=== PATIENT | male | born 1970 | race Caucasian/White ===

== ENCOUNTER → 2023-04-17 | Outpatient (CLI) | payer OTHER | END | disposition home or self-care (01) | LOC: LABWHC1 11:59 | PROVIDERS: ATTEND Urology | DX: R97.20 Elevated prostate specific antigen [PSA] (principal) | CPT/HCPCS: 36415; 84153 ==

== ENCOUNTER 2024-04-20 15:20 | Emergency (ER) | payer OTHER ==
[2024-04-20 15:28] VITALS: RESP 18; TEMP 97.5
[2024-04-20 16:40] LABS: Basophils % (A) 0 %; Eosinophils # (A) 0.1 k/uL (0-0.7); Eosinophils % (A) 1 %; HCT 43.9 % (39.0-53.0); HGB 14.7 gm/dL (13.0-17.5); Lymphocytes # (A) 1.4 k/uL (1.0-4.8); Lymphocytes % (A) 10 %; MCH 30.4 pg (25.0-35.0); MCHC 33.4 g/dL (31.0-37.0); MCV 91.1 fL (80.0-100.0); Mean Platelet Volume 6.6; Monocytes # (A) 0.7 k/uL (0-1.0); Monocytes % (A) 5 %; Neutrophils # (A) 12.4 k/uL (1.3-7.7); Neutrophils % (A) 84 %; Platelet Count 270 k/uL (150-450); RBC 4.82 m/uL (4.30-5.90); RDW 12.1 % (11.5-15.5); WBC 14.7 k/uL (3.8-10.6)
--- NOTE | 2024-04-20 16:40 | ED ---
General Adult HPI - General Chief complaint: Urogenital Stated complaint: Lower abd pain Time Seen by Provider: 04/20/24 16:13 Source: patient Mode of arrival: ambulatory Limitations: no limitations - History of Present Illness Initial comments: 54-year-old male with chief complaint of abdominal pain. Patient states that earlier today he started experiencing some pain to his right sided back. Since then the pain has traveled around from his side and is now in his pelvis. It is a sharp pain with colicky quality. He has also had some difficulty urinating today. He admits to nausea and vomiting. No dysuria or hematuria. No history of kidney stones. No fevers or chills. No diarrhea or hematochezia. - Related Data Previous Rx's Medication Instructions Recorded Ketorolac [Toradol] 10 mg PO Q6HR PRN #12 tab 04/20/24 Ondansetron Odt [Zofran Odt] 4 mg PO Q8HR PRN #20 tab 04/20/24 Allergies Allergy/AdvReac Type Severity Reaction Status Date / Time No Known Allergies Allergy Verified 04/20/24 16:04 Review of Systems ROS Statement: Those systems with pertinent positive or pertinent negative responses have been documented in the HPI. ROS Other: All systems not noted in ROS Statement are negative. Past Medical History Past Medical History: No Reported History Past Surgical History: Appendectomy, Orthopedic Surgery Smoking Status: Never smoker Past Alcohol Use History: Occasional Past Drug Use History: Marijuana General Exam Limitations: no limitations General appearance: alert, in no apparent distress Head exam: Present: atraumatic, normocephalic Eye exam: Present: normal appearance, EOMI Neck exam: Present: normal inspection. Absent: meningismus Respiratory exam: Absent: respiratory distress Cardiovascular Exam: Present: regular rate GI/Abdominal exam: Present: soft. Absent: distended, tenderness, guarding, rebound, rigid Neurological exam: Present: alert, oriented X3 Psychiatric exam: Present: normal affect, normal mood Skin exam: Present: warm, dry Course Vital Signs 04/20/24 04/20/24 15:25 18:09 Temperature 97.5 F L Pulse Rate 68 70 Respiratory 18 18 Rate Blood Pressure 148/89 134/88 O2 Sat by Pulse 99 97 Oximetry Medical Decision Making - Medical Decision Making Was pt. sent in by a medical professional or institution (, PA, ORTHODONTIST VICE PRESIDENT, urgent care, hospital, or retirement...) When possible be specific @ -No Did you speak to anyone other than the patient for history (EMS, parent, family, police, friend...)? What history was obtained from this source @ -No Did you review nursing and triage notes (agree or disagree)? Why? @ -I reviewed and agree with nursing and triage notes Were old charts reviewed (outside hosp., previous admission, EMS record, old EKG, old radiological studies, urgent care reports/EKG's, retirement records)? Report findings @ -No old charts were reviewed Differential Diagnosis (chest pain, altered mental status, abdominal pain women, abdominal pain men, vaginal bleeding, weakness, fever, dyspnea, syncope, headache, dizziness, GI bleed, back pain, seizure, CVA, palpatations, mental health, musculoskeletal)? @ -MDM Differential Abdominal Pain Men: Appendicitis, cholecystitis, diverticulosis, ischemic bowel, pancreatitis, hepatitis, UTI, gastroenteritis, AAA, incarcerated hernia, bowel obstruction, constipation, inflammatory bowel, hepatitis, peptic ulcer disease, splenic infarction, perforated viscus, testicular torsion... This is not meant to be an all-inclusive list EKG interpreted by me (3pts min.). @ -As above X-rays interpreted by me (1pt min.). @ -None done CT interpreted by me (1pt min.). @ -CT shows punctate calcification within the dependent midline the urinary bladder. This may be recent passage of a right ureteral stone. Minimal right hydroureter would correlate with recent passage of a calcification U/S interpreted by me (1pt. min.). @ -None done What testing was considered but not performed or refused? (CT, X-rays, U/S, labs)? Why? @ -None What meds were considered but not given or refused? Why? @ -None Did you discuss the management of the patient with other professionals (professionals i.e. , PA, ORTHODONTIST VICE PRESIDENT, lab, RT, psych nurse, executive secretary social welfare, hospitality job titles, teacher, immigration officer, home health care case manager)? Give summary @ -No Was smoking cessation discussed for >3mins.? @ -No Was critical care preformed (if so, how long)? @ -No Were there social determinants of health that impacted care today? How? (Homelessness, low income, unemployed, alcoholism, drug addiction, transportation, low edu. Level, literacy, decrease access to med. care, penitentiary, rehab)? @ -No Was there de-escalation of care discussed even if they declined (Discuss DNR or withdrawal of care, Hospice)? DNR status @ -No What co-morbidities impacted this encounter? (DM, HTN, Smoking, COPD, CAD, Cancer, CVA, ARF, Chemo, Hep., AIDS, mental health diagnosis, sleep apnea, morbid obesity)? @ -None Was patient admitted / discharged? Hospital course, mention meds given and route, prescriptions, significant lab abnormalities, going to OR and other pertinent info. @ -54-year-old male patient with chief complaint of right-sided abdominal pain. Initially started as flank pain. History and physical exam are conducted. WBC 14.7, patient was vomiting today. Urine shows large blood with [address] is positive for recently diagnosed calcification and right hydroureter. On reassessment patient is resting comfortably, no more pain. Educated on today's findings discharged home. Follow-up with PCP. Report back to ER with any new or worsening symptoms. Discussed return parameters and answered all questions. Patient conveyed verbal understanding and agreed to the plan. I discussed this case in detail with my attending Dr. Morris Undiagnosed new problem with uncertain prognosis? @ -No Drug Therapy requiring intensive monitoring for toxicity (Heparin, Nitro, Insulin, Cardizem)? @ -No Were any procedures done? @ -No Diagnosis/symptom? @ -Kidney stone Acute, or Chronic, or Acute on Chronic? @ -Acute Uncomplicated (without systemic symptoms) or Complicated (systemic symptoms)? @ -Uncomplicated Side effects of treatment? @ -No Exacerbation, Progression, or Severe Exacerbation? @ -No Poses a threat to life or bodily function? How? (Chest pain, [place], OR, pneumonia, PE, COPD, DKA, ARF, appy, cholecystitis, CVA, Diverticulitis, Homicidal, Suicidal, threat to staff... and all critical care pts) @ -No - Lab Data Result diagrams: 04/20/24 16:31 04/20/24 16:31 Lab Results 04/20/24 04/20/24 04/20/24 Range/Units 16:31 16:31 17:03 WBC 14.7 H (3.8-10.6) k/uL RBC 4.82 (4.30-5.90) m/uL Hgb 14.7 (13.0-17.5) gm/dL Hct 43.9 (39.0-53.0) % MCV 91.1 (80.0-100.0) fL MCH 30.4 (25.0-35.0) pg MCHC 33.4 (31.0-37.0) g/dL RDW 12.1 (11.5-15.5) % Plt Count 270 (150-450) k/uL MPV 6.6 Neutrophils % 84 % Lymphocytes % 10 % Monocytes % 5 % Eosinophils % 1 % Basophils % 0 % Neutrophils # 12.4 H (1.3-7.7) k/uL Lymphocytes # 1.4 (1.0-4.8) k/uL Monocytes # 0.7 (0-1.0) k/uL Eosinophils # 0.1 (0-0.7) k/uL Basophils # 0.0 (0-0.2) k/uL Sodium 136 L (137-145) mmol/L Potassium 4.3 (3.5-5.1) mmol/L Chloride 104 (98-107) mmol/L Carbon Dioxide 25 (22-30) mmol/L Anion Gap 7 mmol/L BUN 21 H (9-20) mg/dL Creatinine 0.85 (0.66-1.25) mg/dL Est GFR (CKD-EPI)AfAm >90 (>60 ml/min/1.73 sqM) Est GFR (CKD-EPI)NonAf >90 (>60 ml/min/1.73 sqM) Glucose 137 H (74-99) mg/dL Calcium 9.4 (8.4-10.2) mg/dL Total Bilirubin 0.7 (0.2-1.3) mg/dL AST 28 (17-59) U/L ALT 22 (4-49) U/L Alkaline Phosphatase 49 (38-126) U/L Total Protein 7.4 (6.3-8.2) g/dL Albumin 4.5 (3.5-5.0) g/dL Urine Color Yellow Urine Appearance Clear (Clear) Urine pH 5.0 (5.0-8.0) Ur Specific [place] 1.026 (1.001-1.035) Urine Protein Trace H (Negative) Urine Glucose (UA) Negative (Negative) Urine Ketones Negative (Negative) Urine Blood Large H (Negative) Urine Nitrite Negative (Negative) Urine Bilirubin Negative (Negative) Urine Urobilinogen <2.0 (<2.0) mg/dL Ur Leukocyte Esterase Negative (Negative) Urine RBC 83 H (0-5) /hpf Urine WBC 1 (0-5) /hpf Urine Mucus Moderate H (None) /hpf Disposition Clinical Impression: Kidney stone Disposition: HOME SELF-CARE Condition: Good Instructions (If sedation given, give patient instructions): Kidney Stones (ED) Additional Instructions: Follow-up with PCP. Report back to the ER with any new or worsening symptoms. Prescriptions: Ketorolac [Toradol] 10 mg PO Q6HR PRN #12 tab PRN Reason: Pain Ondansetron Odt [Zofran Odt] 4 mg PO Q8HR PRN #20 tab PRN Reason: Nausea Is patient prescribed a controlled substance at d/c from ED?: No Referrals: Asa Douglass DO [Primary Care Provider] - 1-2 days Time of Disposition: 18:01
[2024-04-20 16:47] LABS: ALT 22 U/L (4-49); AST 28 U/L (17-59); African American GFR (CKD) >90 (>60 ml/min/1.73 sqM); Albumin 4.5 g/dL (3.5-5.0); Alkaline Phosphatase 49 U/L (38-126); Anion Gap 7 mmol/L; Blood Urea Nitrogen 21 mg/dL (9-20); Calcium 9.4 mg/dL (8.4-10.2); Carbon Dioxide 25 mmol/L (22-30); Chloride 104 mmol/L (98-107); Glucose 137 mg/dL (74-99); Non-African American GFR(CKD) >90 (>60 ml/min/1.73 sqM); Potassium 4.3 mmol/L (3.5-5.1); Sodium 136 mmol/L (137-145); Total Bilirubin 0.7 mg/dL (0.2-1.3); Total Protein 7.4 g/dL (6.3-8.2)
[2024-04-20 17:18] LABS: Appearance,Urine Clear (Clear); Bilirubin,Urine Negative (Negative); Blood,Urine Large (Negative); Color,Urine Yellow; Glucose,Urine (UA) Negative (Negative); Ketones,Urine Negative (Negative); Leukocyte Esterase,Urine Negative (Negative); Mucus,Urine Moderate /hpf; Nitrite,Urine Negative (Negative); Protein,Urine Trace (Negative); RBC,Urine 83 /hpf (0-5); Specific Gravity,Urine 1.026 (1.001-1.035); Urobilinogen,Urine <2.0 mg/dL (<2.0); WBC,Urine 1 /hpf (0-5)
--- NOTE | 2024-04-20 17:42 | CT ---
EXAMINATION TYPE: CT abdomen pelvis wo con DATE OF EXAM: 04/20/2024 COMPARISON: None INDICATION: Right flank pain nausea vomiting DLP: 657 mGycm, Automated exposure control for dose reduction was used. CONTRAST: 0 mL of Isovue 300. Study performed without Oral Contrast TECHNIQUE: Axial images were obtained from above the diaphragm to the pubic rami in the axial plane a t 5 mm thick sections. Reconstructed images are reviewed on the computer in the coronal plane. FINDINGS: Limited CT sections are obtained the lung bases. The lung bases are clear. CT ABDOMEN: Liver: Normal Spleen: Normal Pancreas: Normal Adrenal glands: The adrenal glands are normal. Gallbladder: Normal Kidneys: No masses are evident. No hydronephrosis is present. Minimal right hydroureter is not exclud ed. No obstructing renal or ureteral stones are evident. Recent passage of a right renal stone could be considered. Please also see urinary bladder description below. No cysts are present. Aorta: Normal Inferior vena cava: Normal. CT PELVIS: Loops of bowel within the abdomen and pelvis are normal. This study is without oral contrast limi ting bowel evaluation. Appendix: Not identified. No dilated tubular structure or inflammatory change is evident. Urinary bladder: There is a 0.2 cm calcification in the midline away from the ureterovesical junction s. This could be a recently passed ureteral stone. Genitourinary structures: Prostate has mild prominence. Osseous structures: No suspicious lytic or sclerotic lesions. Degenerative disc changes present L5-S1 . IMPRESSION: 1. Punctate calcification within the dependent midline the urinary bladder. This may be recent passa ge of a right ureteral stone. Minimal right hydroureter would correlate with recent passage of a calc ification.
[2024-04-20] MEDS: ONDANSETRON 4 MG/2 ML VIAL IVP STA (18:00)
[2024-04-20] MEDS: KETOROLAC 15 MG/ML 1 ML VIAL IVP STA (18:00)
[2024-04-20 18:10] VITALS: BP 134/88; PULSE 70
== END 2024-04-20 18:24 | disposition home or self-care (01) ==
LOC: EC 15:20
DX: R10.9 Unspecified abdominal pain
CPT/HCPCS: 36415; 74176; 80053; 81001; 85025; 99284